=== PATIENT | male | born 2000 | race Two or more races ===

== ENCOUNTER 2018-09-29 09:13 | Emergency (ER) | payer OTHER ==
[~2018-09-29] VITALS: Ht 177.8 cm; Wt 72.6 kg
[2018-09-29 09:18] VITALS: BP 132/73
== END 2018-09-29 10:41 | disposition home or self-care (01) ==
LOC: ER 09:13
DX: S83.501A Sprain of unspecified cruciate ligament of right knee, initial encounter (principal); X50.0XXA Overexertion from strenuous movement or load, initial encounter; Y93.72 Activity, wrestling; Y99.8 Other external cause status; Y92.89 Other specified places as the place of occurrence of the external cause
CPT/HCPCS: 73562

== ENCOUNTER 2023-03-13 11:54 | Emergency (ER) | payer BC, OTHER ==
[~2023-03-13] VITALS: Ht 177.8 cm; Wt 71.6 kg
[2023-03-13 14:29] VITALS: BP 135/72
[2023-03-13] MEDS ORDERED: IBUP1TAB5 PO (15:41)
== END 2023-03-13 15:56 | disposition home or self-care (01) ==
LOC: ER 11:54
DX: S39.012A Strain of muscle, fascia and tendon of lower back, initial encounter (principal); V43.52XA Car driver injured in collision with other type car in traffic accident, initial encounter; Y93.89 Activity, other specified; Y92.411 Interstate highway as the place of occurrence of the external cause; Y99.8 Other external cause status
CPT/HCPCS: 72070; 72100

== ENCOUNTER 2023-11-14 03:15 | Emergency (ER) | payer BC, OTHER ==
[~2023-11-14] VITALS: Ht 177.8 cm; Wt 72.0 kg
[~2023-11-14 03:15] MED LIST: IBUP1TAB5 PO
[2023-11-14] MEDS: KETOROLAC TROMETH 30 MG/ML 1ML VIAL IM ONE (05:09)
[2023-11-14] MEDS: METOCLOPRAMIDE HCL 5MG/ml INJ 2ml VIAL IM ONE (05:09)
[2023-11-14] MEDS: diphenhdrAMINE HCL 50 MG/1 ML VL IM ONE (05:10)
[2023-11-14 05:19] VITALS: BP 124/76; PULSE 65; RESP 20; TEMP 98.3; O2SAT 97
== END 2023-11-14 05:22 | disposition home or self-care (01) ==
LOC: ER 03:15
DX: R51.9 Headache, unspecified (principal); R50.9 Fever, unspecified; M25.562 Pain in left knee; X58.XXXA Exposure to other specified factors, initial encounter; Y93.89 Activity, other specified; Y92.89 Other specified places as the place of occurrence of the external cause; Y99.8 Other external cause status
CPT/HCPCS: 70450; 73562; 96372; 99285; J1200; J1885; J2765